=== PATIENT | female | born 1995 | race Caucasian/White ===

== ENCOUNTER → 2017-05-27 | Outpatient (CLI) | payer BC ==
--- NOTE | 2017-05-27 11:34 | US ---
EXAMINATION TYPE: US OB >= 14 wk fetus second trimester DATE OF EXAM: 05/27/2017 COMPARISON: None CLINICAL HISTORY: , LT FLANK PAINalso assess ovaries and vascularity TECHNIQUE: OBTA GESTATIONAL AGE / DATING Physician Established: (24 weeks/2 days) EDC: 09/14/2017 Dates by LMP: unknown Dates by Current Scan: (24 weeks/1 days) EDC: 09/15/2017 SURVEY IUP: Single PLACENTA: Anterior PREVIA: No Previa CERVICAL LENGTH (transabdominal: norm > 3.0cm): 3.2 cm BIOMETRY PRESENTATION: Vertex LIE: Longitudinal BPD: 6.1 cm 24 weeks / 6 days HC: 22.1 cm 24 weeks / 1 days AC: 19.3 cm 24 weeks / 1 days FL: 4.1 cm 23 weeks / 3 days ESTIMATED WEIGHT IN GRAMS: 630 grams ESTIMATED WEIGHT IN LBS/OZS: 1 lbs. 6 oz. WEIGHT PERCENTAGE BASED ON ESTABLISHED DATES: 21% HC/AC: 1.1 Normal FL/AC: 21 Normal HEART RATE: 122 bpm RHYTHM: Normal Bilaterally ovaries were assessed, normal in appearance with no obvious pathology noted, good vascula rity seen *results relayed to Dr Pulliam at [facility] office Single live intrauterine gestation is present. Normal cephalad presentation to fetus is seen on curre nt study. There is no ultrasound evidence for placenta previa. Amniotic fluid index was not calculate d but appears grossly within normal limits. biometry measurements are congruent and within norm al limits. Towards the end of exam there is successful visualization of both ovaries which do not marvin ear enlarged. Technologist demonstrates satisfactory arterial flow to and venous return from both ova cecile. Detailed anatomical survey was not performed as was not requested. IMPRESSION: As above
--- NOTE | 2017-05-27 11:35 | US ---
EXAMINATION TYPE: US kidneys/renal and bladder DATE OF EXAM: 05/27/2017 COMPARISON: NONE CLINICAL HISTORY: N20.2 CALCULUS KIDNEY. Left flank pain and 24 weeks EXAM MEASUREMENTS: Right Kidney: 12.4 x 5.7 x 5.2 cm Left Kidney: 11.1 x 6.1 x 6.8 cm Right Kidney: moderate hydronephrosis seen Left Kidney: mild hydronephrosis seen Bladder: wnl Bilateral Jets seen: yes *results relayed to Dr Pulliam at [facility] office No shadowing nephrolithiasis is seen. No masses are identified. The urinary bladder is anechoic. Bilateral ureteral jets are seen. IMPRESSION: There is moderate right-sided hydronephrosis and mild left-sided hydronephrosis with visualization of bilateral distal ureter jets noted making complete obstruction not possible. Favor physiologic venegas es related to or partial occlusion related to enlarged uterus.
== END | disposition home or self-care (01) ==
LOC: RADUSWWP 09:57
PROVIDERS: ATTEND Obstetrics & Gynecology
DX: N13.30 Unspecified hydronephrosis (principal); N85.2 Hypertrophy of uterus; O26.892 Other specified pregnancy related conditions, second trimester; Z3A.24 24 weeks gestation of pregnancy
CPT/HCPCS: 76770; 76805; 93975

== ENCOUNTER → 2022-09-20 | Outpatient (CLI) | payer OTHER | END | disposition home or self-care (01) | LOC: LABWHC1 10:10 | PROVIDERS: ATTEND Psychiatry & Neurology Psychiatry | DX: Z79.899 Other long term (current) drug therapy (principal) | CPT/HCPCS: 36415; 80183 ==

== ENCOUNTER 2023-10-18 20:56 | Emergency (ER) | payer OTHER ==
[2023-10-18 21:22] VITALS: TEMP 97.9
--- NOTE | 2023-10-18 21:37 | ED ---
Dizziness HPI - General Source: patient Mode of arrival: wheelchair Limitations: no limitations <Leland Jaramillo - Last Filed: 10/18/23 21:38> <Wale Carranza - Last Filed: 10/19/23 01:23> - General Chief Complaint: Syncope Stated Complaint: Head Injury-poss seizure - History of Present Illness Initial Comments: 7-year-old female presents to the ED with a chief complaint of head injury. Patient is currently being worked up for an issue where if she stands up too quickly she evidently gets dizzy and had a syncopal episode. Today, states she was in the basement and notes that she stood up too quickly and got dizzy. Due to this, she leaned back against a metal pole and states the next thing she knew her head was bouncing off of the concrete floor. Now notes some headache and nausea and vomiting. (Leland Jaramillo) - Related Data Home Medications Medication Instructions Recorded Confirmed Acetaminophen Tab [Tylenol Tab] 325 mg PO Q6H PRN 07/26/16 07/26/16 Bismuth Subsalicylate 262 mg PO DAILY PRN 07/26/16 07/26/16 [Pepto-Bismol] Ciprofloxacin HCl [Cipro] 500 mg PO Q12HR 07/26/16 07/26/16 Ondansetron Odt [Zofran Odt] 4 mg PO Q6H PRN 07/26/16 07/26/16 Allergies Allergy/AdvReac Type Severity Reaction Status Date / Time No Known Allergies Allergy Verified 07/26/16 13:32 Review of Systems ROS Other: All systems not noted in ROS Statement are negative. <Leland Jaramillo - Last Filed: 10/18/23 21:38> ROS Other: All systems not noted in ROS Statement are negative. <Wale Carranza - Last Filed: 10/19/23 01:23> ROS Statement: Those systems with pertinent positive or pertinent negative responses have been documented in the HPI. Past Medical History Past Medical History: No Reported History Additional Past Medical History / Comment(s): POTS, anemia History of Any Multi-Drug Resistant Organisms: None Reported Past Surgical History: Back Surgery, Section, Tubal Ligation Additional Past Surgical History / Comment(s): knee surgery Past Psychological History: No Psychological Hx Reported Smoking Status: Vaper Past Alcohol Use History: Rare Past Drug Use History: None Reported <Leland Jaramillo - Last Filed: 10/18/23 21:38> General Exam Limitations: no limitations <Leland Jaramillo - Last Filed: 10/18/23 21:38> General appearance: alert, in no apparent distress Head exam: Present: normocephalic, other (left frontal hematoma) Eye exam: Present: normal appearance, PERRL ENT exam: Present: normal exam Neck exam: Present: normal inspection. Absent: tenderness, meningismus Respiratory exam: Present: normal lung sounds bilaterally. Absent: respiratory distress, wheezes Cardiovascular Exam: Present: regular rate, normal rhythm GI/Abdominal exam: Absent: distended Extremities exam: Present: normal inspection Neurological exam: Present: alert, oriented X3, CN II-XII intact. Absent: motor sensory deficit Psychiatric exam: Present: normal affect, normal mood Skin exam: Present: warm, dry, intact <Wale Carranza - Last Filed: 10/19/23 01:23> - General Exam Comments Initial Comments: Visual Physical Exam Vital signs reviewed General: Well-appearing, nontoxic, no acute distress. Head: Normocephalic, atraumatic Eyes: PERRLA, EOMI ENT: Airway patent Chest: Nonlabored breathing Skin: No visual rash, normal skin tone Neuro: Alert and oriented 3 Musculoskeletal: No gross abnormalities (Leland Jaramillo) Course Vital Signs 10/18/23 21:01 Temperature 97.9 F Pulse Rate 92 Respiratory 16 Rate Blood Pressure 108/75 O2 Sat by Pulse 100 Oximetry Medical Decision Making <Leland Jaramillo - Last Filed: 10/18/23 21:38> - Lab Data Result diagrams: 10/18/23 22:31 10/18/23 22:31 <Wale Carranza - Last Filed: 10/19/23 01:23> - Medical Decision Making Quicknote portion performed. Signed Leland Jaramillo PA-C (Leland Jaramillo) Was pt. sent in by a medical professional or institution (Dr. PA, [employer] STOCK CLERK, urgent care, hospital, or jail...) When possible be specific @ -No Did you speak to anyone other than the patient for history (EMS, parent, family, police, friend...)? What history was obtained from this source @ -No Did you review nursing and triage notes (agree or disagree)? Why? @ -I reviewed and agree with nursing and triage notes Were old charts reviewed (outside hosp., previous admission, EMS record, old EKG, old radiological studies, urgent care reports/EKG's, jail records)? Report findings @ -No old charts were reviewed Differential Diagnosis (chest pain, altered mental status, abdominal pain women, abdominal pain men, vaginal bleeding, weakness, fever, dyspnea, syncope, headache, dizziness, GI bleed, back pain, seizure, CVA, palpatations, mental health, musculoskeletal)? @ -Differential Syncope: Valvular disease, hypertrophic cardiomyopathy, pulmonary embolism, tamponade, tachycardia, bradycardia, SC, hypovolemia, hemorrhage, dissection, anemia, intracranial hemorrhage, seizure, hypoglycemia, carbon monoxide poisoning, this is not meant to be an all-inclusive list. EKG interpreted by me (3pts min.). @ -Sinus rhythm rate of 92, TX interval 137, QRS duration 86, QTC [address] segment elevation. X-rays interpreted by me (1pt min.). @ -Chest x-ray negative for acute cardiopulmonary findings CT interpreted by me (1pt min.). @ -CT brain negative for intracranial hemorrhage or mass effect U/S interpreted by me (1pt. min.). @ -None done What testing was considered but not performed or refused? (CT, X-rays, U/S, labs)? Why? @ -None What meds were considered but not given or refused? Why? @ -None Did you discuss the management of the patient with other professionals (professionals i.e. , PA, [employer] STOCK CLERK, lab, RT, psych nurse, social services analyst, wire brush operator, teacher, juvenile probation officer, case filler)? Give summary @ -No Was smoking cessation discussed for >3mins.? @ -No Was critical care preformed (if so, how long)? @ -No Were there social determinants of health that impacted care today? How? (Homelessness, low income, unemployed, alcoholism, drug addiction, transportation, low edu. Level, literacy, decrease access to med. care, long term, rehab)? @ -No Was there de-escalation of care discussed even if they declined (Discuss DNR or withdrawal of care, Hospice)? DNR status @ -No What co-morbidities impacted this encounter? (DM, HTN, Smoking, COPD, CAD, Cancer, CVA, ARF, Chemo, Hep., AIDS, mental health diagnosis, sleep apnea, morbid obesity)? @ -Recurrent dizzy spells Was patient admitted / discharged? Hospital course, mention meds given and route, prescriptions, significant lab abnormalities, going to OR and other pertinent info. @ -[27-year-old female with frequent dizziness and lightheadedness presents after syncopal episode with head injury. Head CT is negative for intracranial hemorrhage or mass effect. Patient is in sinus rhythm. She has mild anemia otherwise normal CBC, normal CMP. She has no urinary symptoms. She denies current . Stable vitals while in the emergency department. She did have some associated nausea and vomiting, likely related to concussion. Undiagnosed new problem with uncertain prognosis? @ -No] Drug Therapy requiring intensive monitoring for toxicity (Heparin, Nitro, Insulin, Cardizem)? @ -[No] Were any procedures done? @ -[No] Diagnosis/symptom? @ -[Syncope, concussion Acute, or Chronic, or Acute on Chronic? @ -Acute Uncomplicated (without systemic symptoms) or Complicated (systemic symptoms)? @ -[default] Side effects of treatment? @ -[No] Exacerbation, Progression, or Severe Exacerbation? @ -[No] Poses a threat to life or bodily function? How? (Chest pain, USA, SC, pneumonia, PE, COPD, DKA, ARF, appy, cholecystitis, CVA, Diverticulitis, Homicidal, Suicidal, threat to staff... and all critical care pts) @ -[Low risk at this time (Wale Carranza) - Lab Data Lab Results 10/18/23 10/18/23 10/18/23 Range/Units 22:31 22:31 22:31 WBC 8.7 (3.8-10.6) k/uL RBC 4.64 (3.80-5.40) m/uL Hgb 11.4 (11.4-16.0) gm/dL Hct 35.7 (34.0-46.0) % MCV 76.9 L (80.0-100.0) fL MCH 24.5 L (25.0-35.0) pg MCHC 31.9 (31.0-37.0) g/dL RDW 15.0 (11.5-15.5) % Plt Count 317 (150-450) k/uL MPV 8.3 Neutrophils % 56 % Lymphocytes % 32 % Monocytes % 6 % Eosinophils % 3 % Basophils % 0 % Neutrophils # 4.8 (1.3-7.7) k/uL Lymphocytes # 2.8 (1.0-4.8) k/uL Monocytes # 0.5 (0-1.0) k/uL Eosinophils # 0.3 (0-0.7) k/uL Basophils # 0.0 (0-0.2) k/uL Hypochromasia Moderate Microcytosis Slight PT 11.3 (10.0-12.5) sec INR 1.0 (<1.2) APTT 27.2 (22.0-30.0) sec Sodium 138 (137-145) mmol/L Potassium 3.7 (3.5-5.1) mmol/L Chloride 103 (98-107) mmol/L Carbon Dioxide 22 (22-30) mmol/L Anion Gap 13 mmol/L BUN 16 (7-17) mg/dL Creatinine 0.67 (0.52-1.04) mg/dL Est GFR (CKD-EPI)AfAm >90 (>60 ml/min/1.73 sqM) Est GFR (CKD-EPI)NonAf >90 (>60 ml/min/1.73 sqM) Glucose 94 (74-99) mg/dL Calcium 9.3 (8.4-10.2) mg/dL Total Bilirubin 0.6 (0.2-1.3) mg/dL AST 17 (14-36) U/L ALT 11 (4-34) U/L Alkaline Phosphatase 66 (38-126) U/L Troponin I (0.000-0.034) ng/mL Total Protein 7.0 (6.3-8.2) g/dL Albumin 4.3 (3.5-5.0) g/dL 10/18/23 Range/Units 22:31 WBC (3.8-10.6) k/uL RBC (3.80-5.40) m/uL Hgb (11.4-16.0) gm/dL Hct (34.0-46.0) % MCV (80.0-100.0) fL MCH (25.0-35.0) pg MCHC (31.0-37.0) g/dL RDW (11.5-15.5) % Plt Count (150-450) k/uL MPV Neutrophils % % Lymphocytes % % Monocytes % % Eosinophils % % Basophils % % Neutrophils # (1.3-7.7) k/uL Lymphocytes # (1.0-4.8) k/uL Monocytes # (0-1.0) k/uL Eosinophils # (0-0.7) k/uL Basophils # (0-0.2) k/uL Hypochromasia Microcytosis PT (10.0-12.5) sec INR (<1.2) APTT (22.0-30.0) sec Sodium (137-145) mmol/L Potassium (3.5-5.1) mmol/L Chloride (98-107) mmol/L Carbon Dioxide (22-30) mmol/L Anion Gap mmol/L BUN (7-17) mg/dL Creatinine (0.52-1.04) mg/dL Est GFR (CKD-EPI)AfAm (>60 ml/min/1.73 sqM) Est GFR (CKD-EPI)NonAf (>60 ml/min/1.73 sqM) Glucose (74-99) mg/dL Calcium (8.4-10.2) mg/dL Total Bilirubin (0.2-1.3) mg/dL AST (14-36) U/L ALT (4-34) U/L Alkaline Phosphatase (38-126) U/L Troponin I <0.012 (0.000-0.034) ng/mL Total Protein (6.3-8.2) g/dL Albumin (3.5-5.0) g/dL Disposition <Leland Jaramillo - Last Filed: 10/18/23 21:38> Is patient prescribed a controlled substance at d/c from ED?: No Time of Disposition: 01:23 <Wale Carranza - Last Filed: 10/19/23 01:23> Clinical Impression: Syncope, Concussion Disposition: HOME SELF-CARE Condition: Fair Instructions (If sedation given, give patient instructions): Syncope (ED), Concussion (ED) Referrals: Christin Gautam DO [Primary Care Provider] - 1-2 days Reuben Kirkland MD [Medical Doctor] - 1-2 days
[2023-10-18 22:47] LABS: Basophils % (A) 0 %; Eosinophils # (A) 0.3 k/uL (0-0.7); Eosinophils % (A) 3 %; HCT 35.7 % (34.0-46.0); HGB 11.4 gm/dL (11.4-16.0); Hypochromasia Moderate; Lymphocytes # (A) 2.8 k/uL (1.0-4.8); Lymphocytes % (A) 32 %; MCH 24.5 pg (25.0-35.0); MCHC 31.9 g/dL (31.0-37.0); MCV 76.9 fL (80.0-100.0); Mean Platelet Volume 8.3; Microcytosis Slight; Monocytes # (A) 0.5 k/uL (0-1.0); Monocytes % (A) 6 %; Neutrophils # (A) 4.8 k/uL (1.3-7.7); Neutrophils % (A) 56 %; Platelet Count 317 k/uL (150-450); RBC 4.64 m/uL (3.80-5.40); WBC 8.7 k/uL (3.8-10.6)
[2023-10-18 22:59] LABS: ALT 11 U/L (4-34); AST 17 U/L (14-36); African American GFR (CKD) >90 (>60 ml/min/1.73 sqM); Albumin 4.3 g/dL (3.5-5.0); Alkaline Phosphatase 66 U/L (38-126); Anion Gap 13 mmol/L; Blood Urea Nitrogen 16 mg/dL (7-17); Calcium 9.3 mg/dL (8.4-10.2); Carbon Dioxide 22 mmol/L (22-30); Chloride 103 mmol/L (98-107); Glucose 94 mg/dL (74-99); Non-African American GFR(CKD) >90 (>60 ml/min/1.73 sqM); Potassium 3.7 mmol/L (3.5-5.1); Sodium 138 mmol/L (137-145); Total Bilirubin 0.6 mg/dL (0.2-1.3)
[2023-10-18 23:02] LABS: Partial Thromboplastin Time 27.2 sec (22.0-30.0); Prothrombin Time 11.3 sec (10.0-12.5)
--- NOTE | 2023-10-18 23:51 | CT ---
EXAMINATION TYPE: CT brain cspine wo con CT DLP: 1463.2 mGycm, Automated exposure control for dose reduction was used. DATE OF EXAM: 10/18/2023 10:00 PM COMPARISON: None. CLINICAL INDICATION:Female, 27 years old with history of head injury +LOC n/v; syncope, loc with naus ea and vomiting since TECHNIQUE: Brain: Multiple axial CT images of the brain were obtained without IV contrast. Cspine: Axial CT images from the skull base to the inferior aspect of T2 we obtained without intraven ous contrast. Coronal and sagittal reformatted images were also reviewed. FINDINGS: Brain: Extra-axial spaces: No abnormal extra-axial fluid collections. Ventricular system: Within normal limits. Cerebral parenchyma: No increased attenuation to suggest acute intraparenchymal hemorrhage. The gra y-white matter interface appears maintained. No significant atrophy. White matter unremarkable by C T. Cerebellum: No acute abnormality. Mass effect: No evidence of mass effect or midline shift. Intracranial vasculature: Unremarkable Soft tissues: Normal. Visualized orbits: Orbital contents appear grossly intact. Calvarium/osseous structures: No evidence of calvarial fracture. Paranasal sinuses and mastoid air cells: Mucosal thickening within the right sphenoid sinus. No signi ficant paranasal sinus fluid. The mastoid air cells appear developmentally underpneumatized, without significant fluid believed to be present. MRI is more sensitive for detecting acute processes such as infarct, and may be considered if clinica lly warranted. Cervical spine: Fracture: None seen. Developmentally incomplete fusion of the posterior and anterior arches of C1. Osseous structures, spinal canal/neural foramina: Posterior fusion changes with hardware spanning fro m T2 to T4 and continuing caudally beyond the limits of this exam. Hardware appears grossly intact bu t position is difficult to shape brick molder without multiplanar images. Vertebral alignment: No traumatic malalignment. Straightening mild reversal of the normal cervical lo rdosis, can be seen with pain, positioning, muscular spasm. Neck soft tissues: There is some debris versus lymphatic tissue seen nestled at the dorsal base of th e epiglottis. Airway is otherwise patent and unremarkable. Other: Lung apices show no acute infiltrate or pneumothorax, given the limits imposed by artifact fro m the spinal hardware. IMPRESSION: CT head: 1. No acute intracranial CT abnormality. 2. Mucosal thickening in the right sphenoid sinus. CT cervical spine: 1. No evidence of cervical spine fracture or traumatic malalignment. 2. Mild reversal of the normal cervical lordosis, can be seen with degenerative changes, pain, posit ioning, muscular spasm. 3. Partially seen upper thoracic spine fusion hardware.
[2023-10-19 01:48] VITALS: BP 128/82; PULSE 85; RESP 18
--- NOTE | 2023-10-19 03:14 | XR ---
EXAM: XR Chest, 2 Views CLINICAL HISTORY: ITS.REASON XR Reason: syncope TECHNIQUE: Frontal and lateral views of the chest. COMPARISON: None FINDINGS: Hardware: None. Lungs/pleura: Normal. No focal consolidation. No pleural effusion or pneumothorax. Heart/mediastinum: Normal. No cardiomegaly. Soft tissues: Unremarkable. Bones: No acute fracture. Spinal fusion rods. Upper abdomen: Normal. IMPRESSION: No acute disease identified.
== END 2023-10-19 01:39 | disposition home or self-care (01) ==
LOC: EC 20:56
DX: S00.03XA Contusion of scalp, initial encounter (principal); S06.0X0A Concussion without loss of consciousness, initial encounter; F17.290 Nicotine dependence, other tobacco product, uncomplicated; R40.2410 Glasgow coma scale score 13-15, unspecified time; X58.XXXA Exposure to other specified factors, initial encounter
CPT/HCPCS: 36415; 70450; 71046; 72125; 80053; 84484; 85025; 85610; 85730; 93005; 99284

== ENCOUNTER → 2025-02-11 | Outpatient (CLI) | payer OTHER ==
--- NOTE | 2025-02-11 11:47 | XR ---
EXAMINATION TYPE: XR scoliosis survey DATE OF EXAM: 02/11/2025 COMPARISON: NONE CLINICAL INDICATION: Female, 29 years old with history of LABS XRAYS R52 PAIN; TECHNIQUE: Thoracolumbar scoliosis series obtained. FINDINGS: Mcnulty rods are in place extending from approximately T1-L1. There is thoracic scoliosi s convex to the right estimated at 24 degrees 7 degree curvature of the lumbar spine convex to the le ft. No fracture or malalignment. IMPRESSION: As above [facility], , 02/11/2025 11:45 AM
[2025-02-11 15:42] LABS: Basophils # (A) 0.06 X 10*3/uL (0.00-0.10); Basophils % (A) 0.9 %; Eosinophils # (A) 0.39 X 10*3/uL (0.04-0.35); Eosinophils % (A) 5.6 %; HCT 41.9 % (37.2-46.3); HGB 13.5 g/dL (12.0-15.0); Lymphocytes # (A) 1.87 X 10*3/uL (0.90-5.00); Lymphocytes % (A) 26.9 %; MCH 29.9 pg (27.0-32.0); MCHC 32.2 g/dL (32.0-37.0); MCV 92.7 FL (80.0-97.0); Mean Platelet Volume 10.5 FL (9.5-12.2); Monocytes # (A) 0.57 X 10*3/uL (0.20-1.00); Monocytes % (A) 8.2 %; NRBC Per 100 WBC 0 X 10*3/uL (0.00-0.01); Neutrophils # (A) 4.04 X 10*3/uL (1.80-7.70); Neutrophils % (A) 58.1 %; Platelet Count 277 X 10*3/uL (140-440); RBC 4.52 X 10*6/uL (4.10-5.20); RDW 12.6 % (11.5-14.5); WBC 6.95 X 10*3/uL (4.50-10.00)
[2025-02-12 10:01] LABS: IgG Subclass 1 368.8 mg/dL (382.40-928.60); IgG Subclass 2 128.8 mg/dL (241.80-700.30); IgG Subclass 3 42.6 mg/dL (21.82-176.00); IgG Subclass 4 21.6 mg/dL (3.92-86.40)
== END | disposition home or self-care (01) ==
LOC: RADXRMAIN 11:05
PROVIDERS: ATTEND Family Medicine
DX: M41.85 Other forms of scoliosis, thoracolumbar region (principal)
CPT/HCPCS: 72082; 82784; 82787; 85025

== ENCOUNTER 2025-02-23 13:53 | Emergency (ER) | payer OTHER ==
[2025-02-23 14:07] VITALS: TEMP 98
[2025-02-23 14:08] LABS: Glucose,Whole Blood 143 mg/dL (70-110)
--- NOTE | 2025-02-23 14:43 | ED ---
General Adult HPI - General Chief complaint: Dizziness Stated complaint: blurred vision, dizziness Time Seen by Provider: 02/23/25 14:03 Source: patient, RN notes reviewed Mode of arrival: ambulatory Limitations: no limitations - History of Present Illness Initial comments: 29 year old female presents to the ED for evaluation of worsening dizziness and changes in vision that started this morning. She has a medical history of Pots but says her symptoms feel similar than an acute exacerbation of this. She denies any history of migraines, chest pain, ringing in the ears, or hearing loss. She mentions that the dizziness makes her feel like the room is spinning and feels worse when she is moving and changing positions. Patient has any focal weakness denies any extremity weakness, no paresthesias she states she just feels tired. No chest pain or shortness of breath. Patient states with the dizziness she does have some blurred vision but settles down when she is not moving around quickly. - Related Data Home Medications Medication Instructions Recorded Confirmed Cariprazine HCl [Vraylar] 3 mg PO DAILY 01/26/24 02/17/24 DULoxetine HCL [Cymbalta] 60 mg PO BID 01/26/24 02/17/24 OXcarbazepine [Trileptal] 300 mg PO BID 01/26/24 02/17/24 Previous Rx's Medication Instructions Recorded Meclizine [Antivert] 25 mg PO TID PRN #15 tab 02/23/25 Allergies Allergy/AdvReac Type Severity Reaction Status Date / Time No Known Allergies Allergy Verified 02/23/25 14:07 Review of Systems ROS Statement: Those systems with pertinent positive or pertinent negative responses have been documented in the HPI. ROS Other: All systems not noted in ROS Statement are negative. Past Medical History Past Medical History: No Reported History Additional Past Medical History / Comment(s): POTS, anemia History of Any Multi-Drug Resistant Organisms: None Reported Past Surgical History: Back Surgery, Section, Tubal Ligation Additional Past Surgical History / Comment(s): knee surgery Past Psychological History: No Psychological Hx Reported Smoking Status: Vaper General Exam Limitations: no limitations General appearance: alert, in no apparent distress Head exam: Present: atraumatic, normocephalic, normal inspection Eye exam: Present: normal appearance, PERRL, EOMI. Absent: scleral icterus, conjunctival injection, periorbital swelling ENT exam: Present: normal exam, mucous membranes moist Neck exam: Present: normal inspection, full ROM. Absent: tenderness, meningismus, lymphadenopathy Respiratory exam: Present: normal lung sounds bilaterally. Absent: respiratory distress, wheezes, rales, rhonchi, stridor Cardiovascular Exam: Present: regular rate, normal rhythm, normal heart sounds. Absent: systolic murmur, diastolic murmur, rubs, gallop, clicks Neurological exam: Present: alert, oriented X3, CN II-XII intact, reflexes normal. Absent: motor sensory deficit Skin exam: Present: warm, dry, intact, normal color. Absent: rash Course Vital Signs 02/23/25 14:02 Temperature 98.0 F Pulse Rate 65 Respiratory 17 Rate Blood Pressure 106/66 O2 Sat by Pulse 99 Oximetry EKG Findings - EKG Comments: EKG Findings:: EKG performed at 13: 34 sinus rhythm rate of 62 HI 157 QRS 93 QT/QTc 4 9/414 - EKG Results: EKG: interpreted by RADHA Medical Decision Making - Medical Decision Making Was pt. sent in by a medical professional or institution (, PA, OVEN UNLOADER, urgent care, hospital, or fpc...) When possible be specific @ -No Did you speak to anyone other than the patient for history (EMS, parent, family, police, friend...)? What history was obtained from this source @ -No Did you review nursing and triage notes (agree or disagree)? Why? @ -I reviewed and agree with nursing and triage notes Were old charts reviewed (outside hosp., previous admission, EMS record, old EKG, old radiological studies, urgent care reports/EKG's, fpc records)? Report findings @ -No old charts were reviewed Differential Diagnosis (chest pain, altered mental status, abdominal pain women, abdominal pain men, vaginal bleeding, weakness, fever, dyspnea, syncope, headache, dizziness, GI bleed, back pain, seizure, CVA, palpatations, mental health, musculoskeletal)? @ -Differential Dizziness: Benign paroxysmal positional Vertigo, Meniere's disease, otitis media, acoustic neuroma, vertebrobasilar insufficiency, cerebellar stroke, encephalitis, hypovolemic, arrhythmia, coronary artery syndrome, anemia, this is not meant to be an all-inclusive list EKG interpreted by me (3pts min.). @ -As above X-rays interpreted by me (1pt min.). @None CT interpreted by me (1pt min.). @ -CT brain showing no acute intracranial hemorrhage, mass effect no acute process. U/S interpreted by me (1pt. min.). @ -None done What testing was considered but not performed or refused? (CT, X-rays, U/S, labs )? Why? @ -None What meds were considered but not given or refused? Why? @ -None Did you discuss the management of the patient with other professionals (professionals i.e. , PA, OVEN UNLOADER, lab, RT, psych nurse, social studies teacher, sales operations coordinator, teacher, protocol officer, case consultant)? Give summary @ -No Was smoking cessation discussed for >3mins.? @ -No Was critical care preformed (if so, how long)? @ -No Were there social determinants of health that impacted care today? How? (Homelessness, low income, unemployed, alcoholism, drug addiction, transportation, low edu. Level, literacy, decrease access to med. care, halfway, rehab)? @ -No Was there de-escalation of care discussed even if they declined (Discuss DNR or withdrawal of care, Hospice)? DNR status @ -No What co-morbidities impacted this encounter? (DM, HTN, Smoking, COPD, CAD, Cancer, CVA, ARF, Chemo, Hep., AIDS, mental health diagnosis, sleep apnea, morbid obesity)? @ -None Was patient admitted / discharged? Hospital course, mention meds given and route, prescriptions, significant lab abnormalities, going to OR and other pertinent info. @ -Discharge patient presented for increasing dizziness type symptoms with history of POTS. Patient laboratory studies unremarkable patient did have persistent dizziness in which imaging was obtained this is negative. Patient is neurologically intact with no deficits. No focal symptoms. Patient feels co mfortable discharge with Antivert and return parameters paola. Undiagnosed new problem with uncertain prognosis? @ -No Drug Therapy requiring intensive monitoring for toxicity (Heparin, Nitro, Insulin, Cardizem)? @ -No Were any procedures done? @ -No Diagnosis/symptom? @ -Dizziness Acute, or Chronic, or Acute on Chronic? @ -Acute Uncomplicated (without systemic symptoms) or Complicated (systemic symptoms)? @ -Complicated Side effects of treatment? @ -No Exacerbation, Progression, or Severe Exacerbation? @ -No Poses a threat to life or bodily function? How? (Chest pain, USA, MA, pneumonia, PE, COPD, DKA, ARF, appy, cholecystitis, CVA, Diverticulitis, Homicidal, Suicidal, threat to staff... and all critical care pts) @ -No - Lab Data Result diagrams: 02/23/25 14:40 02/23/25 14:40 Lab Results 02/23/25 02/23/25 02/23/25 Range/Units 14:06 14:40 14:40 WBC 6.38 (4.50-10.00) 10*3/uL RBC 4.51 (4.10-5.20) 10*6/uL Hgb 14.0 (12.0-15.0) g/dL Hct 40.9 (37.2-46.3) % MCV 90.7 (80.0-97.0) fL MCH 31.0 (27.0-32.0) pg MCHC 34.2 (32.0-37.0) g/dL Plt Count 285 (140-440) 10*3/uL MPV 10.0 (9.5-12.2) fL Immature Gran % (Auto) 0.3 % Neutrophils % 54.3 % Lymphocytes % 32.6 % Monocytes % 7.7 % Eosinophils % 4.2 % Basophils % 0.9 % Immature Gran # 0.02 (0.00-0.04) 10*3/uL Neutrophils # 3.46 (1.80-7.70) 10*3/uL Lymphocytes # 2.08 (0.90-5.00) 10*3/uL Monocytes # 0.49 (0.20-1.00) 10*3/uL Eosinophils # 0.27 (0.04-0.35) 10*3/uL Basophils # 0.06 (0.00-0.10) 10*3/uL Sodium 139 (137-145) mmol/L Potassium 3.8 (3.5-5.1) mmol/L Chloride 104 (98-107) mmol/L Carbon Dioxide 26 (22-30) mmol/L Anion Gap 9 mmol/L BUN 11 (7-17) mg/dL Creatinine 0.57 (0.52-1.04) mg/dL Est GFR (CKD-EPI)AfAm >90 (>60 ml/min/1.73 sqM) Est GFR (CKD-EPI)NonAf >90 (>60 ml/min/1.73 sqM) Glucose 88 (74-99) mg/dL POC Glucose (mg/dL) 143 H (70-110) mg/dL POC Glu Program Management Professional ID Kelly Duran Calcium 9.4 (8.4-10.2) mg/dL Total Bilirubin 0.6 (0.2-1.3) mg/dL AST 14 (14-36) U/L ALT 11 (4-34) U/L Alkaline Phosphatase 52 (38-126) U/L Total Protein 6.0 L (6.3-8.2) g/dL Albumin 3.7 (3.5-5.0) g/dL Disposition Clinical Impression: Dizziness Disposition: HOME SELF-CARE Condition: Stable Instructions (If sedation given, give patient instructions): Dizziness (ED) Additional Instructions: Please return to the Emergency Department if symptoms worsen or any other concerns. Prescriptions: Meclizine [Antivert] 25 mg PO TID PRN #15 tab PRN Reason: Vertigo Is patient prescribed a controlled substance at d/c from ED?: No Referrals: Christin Gautam DO [Primary Care Provider] - 1-2 days Time of Disposition: 16:37
[2025-02-23] MEDS: MECLIZINE 12.5 MG TAB PO STA (14:44)
[2025-02-23] MEDS: SODIUM CHLORIDE 0.9% 1,000 ML IV STA (14:45)
[2025-02-23] MEDS: SODIUM CHLORIDE 0.9% 500 ML 500 ML IV STA (14:45)
[2025-02-23 14:46] LABS: Basophils # (A) 0.06 10*3/uL (0.00-0.10); Basophils % (A) 0.9 %; Eosinophils # (A) 0.27 10*3/uL (0.04-0.35); Eosinophils % (A) 4.2 %; HCT 40.9 % (37.2-46.3); Lymphocytes # (A) 2.08 10*3/uL (0.90-5.00); Lymphocytes % (A) 32.6 %; MCHC 34.2 g/dL (32.0-37.0); MCV 90.7 fL (80.0-97.0); Monocytes # (A) 0.49 10*3/uL (0.20-1.00); Monocytes % (A) 7.7 %; Neutrophils # (A) 3.46 10*3/uL (1.80-7.70); Neutrophils % (A) 54.3 %; Platelet Count 285 10*3/uL (140-440); RBC 4.51 10*6/uL (4.10-5.20); RDW 12.1 % (11.5-14.5); WBC 6.38 10*3/uL (4.50-10.00)
[2025-02-23 14:56] LABS: ALT 11 U/L (4-34); AST 14 U/L (14-36); African American GFR (CKD) >90 (>60 ml/min/1.73 sqM); Albumin 3.7 g/dL (3.5-5.0); Alkaline Phosphatase 52 U/L (38-126); Anion Gap 9 mmol/L; Blood Urea Nitrogen 11 mg/dL (7-17); Calcium 9.4 mg/dL (8.4-10.2); Carbon Dioxide 26 mmol/L (22-30); Chloride 104 mmol/L (98-107); Glucose 88 mg/dL (74-99); Non-African American GFR(CKD) >90 (>60 ml/min/1.73 sqM); Potassium 3.8 mmol/L (3.5-5.1); Sodium 139 mmol/L (137-145); Total Bilirubin 0.6 mg/dL (0.2-1.3)
[2025-02-23] MEDS: diphenhydrAMINE 50 MG/ML 1 ML VIAL IVP STA (16:08)
[2025-02-23] MEDS: SODIUM CHLORIDE 0.9% 500 ML 500 ML IV ONE (16:08)
[2025-02-23] MEDS: KETOROLAC 15 MG/ML 1 ML VIAL IVP STA (16:08)
[2025-02-23] MEDS: METOCLOPRAMIDE 5 MG/ML 2 ML VIAL IVP STA (16:08)
--- NOTE | 2025-02-23 16:10 | CT ---
EXAMINATION TYPE: CT brain wo con DATE OF EXAM: 02/23/2025 4:03 PM COMPARISON: None. CLINICAL INDICATION: Female, 29 years old with history of dizziness, dizziness TECHNIQUE: Brain: Axial CT images of the brain were obtained with coronal and sagittal reformats created and rev iewed. Contrast used: None. Oral contrast used: None. CT DLP: 1125.2 mGycm, Automated exposure control for dose reduction was used. FINDINGS: Brain: Extra-axial spaces: No abnormal extra-axial fluid collections. Ventricular system: Within normal limits Cerebral parenchyma: No acute intraparenchymal hemorrhage or mass effect. The roach-white junction is well differentiated. Cerebellum: Unremarkable. Mass effect: No evidence of midline shift. Intracranial vasculature: unremarkable Soft tissues: Normal. Calvarium/osseous structures: No depressed skull fracture. Paranasal sinuses and mastoid air cells: Mild scattered paranasal sinus disease. Visualized orbits: Orbital contents are intact. IMPRESSION: No acute intracranial process. [facility], , 02/23/2025 4:08 PM
[2025-02-23 16:54] VITALS: BP 110/74; PULSE 70; RESP 18
== END 2025-02-23 17:06 | disposition home or self-care (01) ==
LOC: EC 13:53
DX: R42 Dizziness and giddiness (principal); F17.290 Nicotine dependence, other tobacco product, uncomplicated
CPT/HCPCS: 36415; 93005; 80053; 85025; 70450; 99284; 96374; 96375 ×2; 96361 ×2; J1200; J2765; J1885